=== PATIENT | male | born 1980 | race Two or more races ===

== ENCOUNTER 2023-06-18 21:34 | Emergency (ER) | payer MEDICAID, OTHER ==
[~2023-06-18] VITALS: Ht 172.7 cm; Wt 96.6 kg
[2023-06-18 21:43] VITALS: TEMP 98
[2023-06-18 22:18] VITALS: BP 130/77; O2SAT 99
[2023-06-18 22:24] LABS: BASOPHILS % (AUTO) 0.6 % (0.0-2.0); EOSINOPHILS # (AUTO) 0.2 K/uL (0.0-0.7); EOSINOPHILS % (AUTO) 2.7 % (0.0-6.0); HEMATOCRIT 41 % (39-51); LYMPHOCYTES # (AUTO) 2.1 K/uL (0.8-4.8); LYMPHOCYTES % (AUTO) 29.6 % (20.0-44.0); MEAN CORPUSCULAR HEMOGLOBIN 29 PG (26.0-33.0); MEAN CORPUSCULAR HGB CONC 35 g/dl (31.0-36.0); MEAN CORPUSCULAR VOLUME 83 fL (80-96); MONOCYTES # (AUTO) 0.6 K/uL (0.1-1.30); MONOCYTES % (AUTO) 7.9 % (2.0-12.0); NEUTROPHILS # (AUTO) 4.2 K/uL (1.8-8.9); NEUTROPHILS % (AUTO) 59.2 % (43.0-81.0); PLATELET COUNT (AUTO) 185 K/uL (150-450); RED CELL DISTRIBUTION WIDTH 13.1 % (11.5-15.0)
[2023-06-18 22:43] LABS: CALCIUM, SERUM 8.9 mg/dL (8.5-10.1); CARBON DIOXIDE 25 mmol/L (21-32); CHLORIDE 99 mmol/L (98-107); CREATININE 0.8 mg/dL (0.6-1.3); GLUCOSE 103 mg/dL (74-106); POTASSIUM 3.6 mmol/L (3.5-5.1); SODIUM SERUM 135 mmol/L (136-145); UREA NITROGEN, BLOOD 15 mg/dL (7-18)
[2023-06-18 22:45] LABS: ACETAMINOPHEN <10 ug/ml (10-30); ALANINE AMINOTRANSFERASE 38 U/L (12-78); ALBUMIN 3.9 g/dL (3.4-5.0); ALCOHOL, BLOOD < 3 mg/dL (0-10); ALKALINE PHOSPHATASE 83 U/L (46-116); ASPARTATE AMINOTRANSFERASE 16 U/L (15-37); BILIRUBIN,DIRECT 0.1 mg/dL (0.0-0.2); BILIRUBIN,TOTAL 0.3 mg/dL (0.2-1.0); SALICYLATE 4.9 mg/dL (2.8-20.0); TOTAL PROTEIN, SERUM 6.9 g/dL (6.4-8.2)
[2023-06-19 03:06] LABS: APPEARANCE,URINE CLEAR (CLEAR); BILIRUBIN,URINE NEGATIVE (NEGATIVE); BLOOD, URINE NEGATIVE Ery/uL (NEGATIVE); COLOR,URINE YELLOW (YELLOW); KETONES,URINE NEGATIVE (NEGATIVE); LEUKOCYTE ESTERASE ,URINE NEGATIVE (NEGATIVE); NITRITE, URINE NEGATIVE (NEGATIVE); PROTEIN,URINE NEGATIVE (NEGATIVE); UGLUCOSE NEGATIVE (NEGATIVE); UROBILINOGEN,URINE 0.2 EU/dL (0.2)
[2023-06-19 03:23] LABS: AMPHETAMINE, URINE NEGATIVE (NEGATIVE); BARBITURATE, URINE NEGATIVE (NEGATIVE); BENZODIAZEPINE, URINE NEGATIVE (NEGATIVE); CANNABINOID, URINE NEGATIVE (NEGATIVE); COCCAINE, URINE NEGATIVE (NEGATIVE); OPIATE, URINE NEGATIVE (NEGATIVE); PHENCYCLIDINE SCREEN,URINE NEGATIVE (NEGATIVE)
== END 2023-06-19 02:59 | disposition home or self-care (01) ==
LOC: ER 21:36
DX: T43.592A Poisoning by other antipsychotics and neuroleptics, intentional self-harm, initial encounter (principal); Y92.89 Other specified places as the place of occurrence of the external cause
CPT/HCPCS: 36415; 80048-TC; 80076-TC; 85025-TC; G0480

== ENCOUNTER 2024-04-27 14:06 | Inpatient (IN) | payer BC, OTHER ==
[~2024-04-27] VITALS: Ht 175.3 cm; Wt 79.4 kg
[2024-04-27] MEDS: IV NS 0.9% 1,000 ML BAG IV ONE (17:31)
[2024-04-27 17:47] LABS: BASOPHILS % (AUTO) 0.3 % (0.0-2.0); EOSINOPHILS % (AUTO) 0.2 % (0.0-6.0); HEMATOCRIT 41 % (39-51); HEMOGLOBIN 14.5 g/dL (13.5-17.5); LYMPHOCYTES # (AUTO) 1.6 K/uL (0.8-4.8); LYMPHOCYTES % (AUTO) 17.2 % (20.0-44.0); MEAN CORPUSCULAR HEMOGLOBIN 30 PG (26.0-33.0); MEAN CORPUSCULAR HGB CONC 36 g/dl (31.0-36.0); MEAN CORPUSCULAR VOLUME 83 fL (80-96); MONOCYTES # (AUTO) 0.6 K/uL (0.1-1.30); MONOCYTES % (AUTO) 6.3 % (2.0-12.0); NEUTROPHILS # (AUTO) 7.3 K/uL (1.8-8.9); PLATELET COUNT (AUTO) 197 K/uL (150-450); RED BLOOD CELL COUNT(AUTO) 4.89 MIL/uL (4.5-6.0); RED CELL DISTRIBUTION WIDTH 12.6 % (11.5-15.0); WHITE BLOOD COUNT (AUTO) 9.6 K/uL (4.3-11.0)
[2024-04-27 18:04] LABS: SERUM AMMONIA 16 umol/L (11-32)
[2024-04-27 18:05] LABS: CALCIUM, SERUM 10.2 mg/dL (8.5-10.1); CARBON DIOXIDE 27 mmol/L (21-32); CHLORIDE 99 mmol/L (98-107); CREATININE 0.6 mg/dL (0.6-1.3); GLUCOSE 113 mg/dL (74-106); POTASSIUM 4.6 mmol/L (3.5-5.1); SODIUM SERUM 136 mmol/L (136-145); UREA NITROGEN, BLOOD 6 mg/dL (7-18)
[2024-04-27 18:07] LABS: APPEARANCE,URINE CLEAR (CLEAR); BILIRUBIN,URINE NEGATIVE (NEGATIVE); BLOOD, URINE NEGATIVE Ery/uL (NEGATIVE); COLOR,URINE YELLOW (YELLOW); KETONES,URINE NEGATIVE (NEGATIVE); LEUKOCYTE ESTERASE ,URINE NEGATIVE (NEGATIVE); NITRITE, URINE NEGATIVE (NEGATIVE); PROTEIN,URINE NEGATIVE (NEGATIVE); UGLUCOSE NEGATIVE (NEGATIVE); UROBILINOGEN,URINE 0.2 EU/dL (0.2)
[2024-04-27 18:11] LABS: ALANINE AMINOTRANSFERASE 28 U/L (12-78); ALBUMIN 4.1 g/dL (3.4-5.0); ALKALINE PHOSPHATASE 85 U/L (46-116); ASPARTATE AMINOTRANSFERASE 27 U/L (15-37); BILIRUBIN,DIRECT 0.1 mg/dL (0.0-0.2); BILIRUBIN,TOTAL 0.6 mg/dL (0.2-1.0); SALICYLATE 2.2 mg/dL (2.8-20.0); TOTAL PROTEIN, SERUM 7.8 g/dL (6.4-8.2)
[2024-04-27 18:12] LABS: ACETAMINOPHEN 0 ug/ml (10-30); ALCOHOL, BLOOD < 3 mg/dL (0-10)
[2024-04-27 20:40] LABS: AMPHETAMINE, URINE NEGATIVE (NEGATIVE); BARBITURATE, URINE NEGATIVE (NEGATIVE); BENZODIAZEPINE, URINE NEGATIVE (NEGATIVE); CANNABINOID, URINE NEGATIVE (NEGATIVE); COCCAINE, URINE NEGATIVE (NEGATIVE); OPIATE, URINE NEGATIVE (NEGATIVE); PHENCYCLIDINE SCREEN,URINE NEGATIVE (NEGATIVE)
[2024-04-27] MEDS ORDERED: diphenhydrAMINE HCL 50 MG/ML VIAL ONE (22:18)
[2024-04-27] MEDS ORDERED: LORAZEPAM INJ 2 MG/ML VIAL ONE (22:19)
[2024-04-27] MEDS ORDERED: OLANZAPINE 10 MG VIAL IM ONE (22:19)
[2024-04-27] MEDS: LORAZEPAM INJ 2 MG/ML VIAL IV ONE (22:30)
[2024-04-27] MEDS: diphenhydrAMINE HCL 50 MG/ML VIAL IV ONE (22:30)
[2024-04-27] MEDS: OLANZAPINE 10 MG VIAL IM ONE (22:32)
[2024-04-28] VITALS (23 sets, daily range): BP systolic 109–137; BP diastolic 78–97; TEMP 98.6–100.4; O2SAT 95–97
[2024-04-28] MEDS ORDERED: LORAZEPAM INJ 2 MG/ML VIAL ONE (00:19)
[2024-04-28] MEDS: LORAZEPAM INJ 2 MG/ML VIAL IV ONE (00:37)
[2024-04-28] MEDS ORDERED: ONDANSETRON HCL/PF 4 MG/2 ML VIAL ONE (01:16)
[2024-04-28] MEDS: ONDANSETRON HCL/PF 4 MG/2 ML VIAL IV ONE (01:42)
[2024-04-28] MEDS: IV NS 0.9% 1,000 ML BAG IV ONE (02:54)
[2024-04-28] MEDS ORDERED: HALOPERIDOL LACTATE INJ 5 MG/ML VIAL ONE (03:01)
[2024-04-28] MEDS: HALOPERIDOL LACTATE INJ 5 MG/ML VIAL IM ONE (03:09)
[2024-04-28] MEDS ORDERED: diphenhydrAMINE HCL 50 MG/ML VIAL ONE (05:05)
[2024-04-28] MEDS: diphenhydrAMINE HCL 50 MG/ML VIAL IV ONE (05:08)
[2024-04-28] MEDS ORDERED: MORPHINE SULFATE INJ 2 MG/ML DISP.SYRIN IV PRN (09:00)
[2024-04-28] MEDS ORDERED: ACETAMINOPHEN 325 MG TABLET PO PRN (09:00)
[2024-04-28] MEDS ORDERED: ONDANSETRON HCL/PF 4 MG/2 ML VIAL IVP PRN (09:00)
[2024-04-28] MEDS ORDERED: hydrALAZINE HCL IV 20 MG VIAL IV PRN (09:00)
[2024-04-28] MEDS ORDERED: ENOXAPARIN SODIUM 40 MG/0.4 ML DISP.SYRIN SQ ONE ×2 (09:15→09:37)
[2024-04-28] MEDS: IV NS 0.9% 1,000 ML IV SCH (09:45)
[2024-04-28] MEDS: ENOXAPARIN SODIUM 40 MG/0.4 ML DISP.SYRIN SQ SCH (09:47)
[2024-04-28] MEDS ORDERED: QUET100T PO (10:46)
[2024-04-28] MEDS: OLANZAPINE 2.5 MG TABLET PO SCH (15:17)
[2024-04-28] MEDS: OLANZAPINE 10 MG TABLET PO SCH (21:22)
[2024-04-29] VITALS (21 sets, daily range): BP systolic 94–149; BP diastolic 59–92; TEMP 97.7–98.6; O2SAT 92–96
[2024-04-29 04:50] LABS: BASOPHILS % (AUTO) 0.4 % (0.0-2.0); EOSINOPHILS # (AUTO) 0.1 K/uL (0.0-0.7); EOSINOPHILS % (AUTO) 1.1 % (0.0-6.0); HEMATOCRIT 36 % (39-51); HEMOGLOBIN 12.6 g/dL (13.5-17.5); LYMPHOCYTES # (AUTO) 2.3 K/uL (0.8-4.8); MEAN CORPUSCULAR HEMOGLOBIN 30 PG (26.0-33.0); MEAN CORPUSCULAR HGB CONC 35 g/dl (31.0-36.0); MEAN CORPUSCULAR VOLUME 87 fL (80-96); MONOCYTES % (AUTO) 10.6 % (2.0-12.0); NEUTROPHILS # (AUTO) 5.7 K/uL (1.8-8.9); NEUTROPHILS % (AUTO) 62.9 % (43.0-81.0); PLATELET COUNT (AUTO) 193 K/uL (150-450); RED BLOOD CELL COUNT(AUTO) 4.18 MIL/uL (4.5-6.0); RED CELL DISTRIBUTION WIDTH 12.6 % (11.5-15.0); WHITE BLOOD COUNT (AUTO) 9.1 K/uL (4.3-11.0)
[2024-04-29 05:04] LABS: BILIRUBIN,TOTAL 0.3 mg/dL (0.2-1.0); CALCIUM, SERUM 9.3 mg/dL (8.5-10.1); CREATININE 0.9 mg/dL (0.6-1.3); MAGNESIUM 2.2 mg/dL (1.8-2.4); PHOSPHORUS 3.5 mg/dL (2.5-4.9); POTASSIUM 3.9 mmol/L (3.5-5.1); TOTAL PROTEIN, SERUM 6.6 g/dL (6.4-8.2)
[2024-04-29] MEDS: NEOMY SULF/BACITRAC ZN/POLY 15 GM TUBE TP SCH (09:01)
[2024-04-29] MEDS: CLOTRIMAZOLE 1% 15 GM TUBE TP SCH (09:01)
[2024-04-29] MEDS ORDERED: ZOLPIDEM TARTRATE 10 MG TABLET PO PRN (10:30)
[2024-04-29] MEDS: DIVALPROEX SODIUM 500 MG TABLET.DR PO SCH (10:47)
[2024-04-29] MEDS: OLANZAPINE 2.5 MG TABLET PO SCH (17:02)
[2024-04-29] MEDS: IV NS 0.9% 1,000 ML IV PRN (18:16)
[2024-04-29] MEDS: OLANZAPINE 10 MG TABLET PO SCH (22:07)
[2024-04-30] VITALS: BP 116/67; TEMP 97.4; O2SAT 96
[2024-04-30 01:00] VITALS: BP 116/67; O2SAT 96
[2024-04-30 04:00] VITALS: BP 123/58; TEMP 97.3; O2SAT 96
[2024-04-30 05:00] VITALS: BP 123/58; O2SAT 96
[2024-04-30 07:39] LABS: BASOPHILS # (AUTO) 0.1 K/uL (0.0-0.2); BASOPHILS % (AUTO) 0.7 % (0.0-2.0); EOSINOPHILS # (AUTO) 0.2 K/uL (0.0-0.7); EOSINOPHILS % (AUTO) 2.3 % (0.0-6.0); HEMATOCRIT 36 % (39-51); HEMOGLOBIN 12.6 g/dL (13.5-17.5); LYMPHOCYTES # (AUTO) 2.6 K/uL (0.8-4.8); LYMPHOCYTES % (AUTO) 31.8 % (20.0-44.0); MEAN CORPUSCULAR HEMOGLOBIN 30 PG (26.0-33.0); MEAN CORPUSCULAR HGB CONC 35 g/dl (31.0-36.0); MEAN CORPUSCULAR VOLUME 84 fL (80-96); MONOCYTES # (AUTO) 0.7 K/uL (0.1-1.30); MONOCYTES % (AUTO) 8.1 % (2.0-12.0); NEUTROPHILS # (AUTO) 4.7 K/uL (1.8-8.9); NEUTROPHILS % (AUTO) 57.1 % (43.0-81.0); PLATELET COUNT (AUTO) 214 K/uL (150-450); RED BLOOD CELL COUNT(AUTO) 4.27 MIL/uL (4.5-6.0); RED CELL DISTRIBUTION WIDTH 12.4 % (11.5-15.0); WHITE BLOOD COUNT (AUTO) 8.2 K/uL (4.3-11.0)
[2024-04-30 10:43] LABS: CALCIUM, SERUM 9.2 mg/dL (8.5-10.1); POTASSIUM 4.3 mmol/L (3.5-5.1)
[2024-04-30] MEDS ORDERED: CLOT15CR35 TP (11:29)
[2024-04-30] MEDS ORDERED: Olanzapine PO (11:29)
[2024-04-30] MEDS ORDERED: OLAN5TAB3 PO (11:29)
[2024-04-30] MEDS ORDERED: DIVA500T2 PO (11:29)
== END 2024-04-30 12:55 | disposition home or self-care (01) | DRG 92 ==
LOC: ER 14:11 → ICU 04-28 10:15 → TELE1 04-29 16:02 → MEDSG1 04-30 08:08
PROVIDERS: ADMIT Internal Medicine; ATTEND Nurse Practitioner Acute Care
DX: G92.8 Other toxic encephalopathy (principal); E44.1 Mild protein-calorie malnutrition; F31.9 Bipolar disorder, unspecified; F20.9 Schizophrenia, unspecified; Z91.199 Patient's noncompliance with other medical treatment and regimen due to unspecified reason; E03.8 Other specified hypothyroidism; E88.09 Other disorders of plasma-protein metabolism, not elsewhere classified; F29 Unspecified psychosis not due to a substance or known physiological condition; T43.595A Adverse effect of other antipsychotics and neuroleptics, initial encounter; Z68.25 Body mass index [BMI] 25.0-25.9, adult; Z20.822 Contact with and (suspected) exposure to COVID-19; S61.211A Laceration without foreign body of left index finger without damage to nail, initial encounter; X58.XXXA Exposure to other specified factors, initial encounter; Y93.89 Activity, other specified; Y92.89 Other specified places as the place of occurrence of the external cause
CPT/HCPCS: 36415; 70450-TC; 71045-TC; 80048-TC; 80053-TC; 80076-TC; 80164-TC; 82140-TC; 82962-TC; 83735-TC; 84100-TC; 84439-TC; 84443-TC; 84481; 84484-TC; 85025-TC; 87081-TC; 87086-TC; 98960; A4223; A6403; G0378; G0480; J1200; J1630; J1650; J2060; J2405; J3490; J7030

== ENCOUNTER 2024-05-15 19:56 | Inpatient (IN) | payer BC, OTHER ==
[~2024-05-15] VITALS: Ht 175.3 cm; Wt 94.1 kg
[~2024-05-15 19:56] MED LIST: CLOT15CR35 TP; DIVA500T2 PO; OLAN5TAB3 PO; Olanzapine PO
[2024-05-15] MEDS ORDERED: MAG HYDROX/AL HYDROX/SIMETH 30 ML UDC ONE (20:26)
[2024-05-15] MEDS ORDERED: FAMOTIDINE/PF INJ 20 MG/2 ML VIAL IV ONE (20:27)
[2024-05-15] MEDS: MAG HYDROX/AL HYDROX/SIMETH 30 ML UDC PO ONE (20:30)
[2024-05-15] MEDS: FAMOTIDINE (20 MG) 20 MG TABLET PO ONE (20:30)
[2024-05-15 20:37] LABS: BASOPHILS # (AUTO) 0.1 K/uL (0.0-0.2); BASOPHILS % (AUTO) 0.6 % (0.0-2.0); EOSINOPHILS # (AUTO) 0.1 K/uL (0.0-0.7); EOSINOPHILS % (AUTO) 1.4 % (0.0-6.0); HEMATOCRIT 37 % (39-51); LYMPHOCYTES # (AUTO) 2.4 K/uL (0.8-4.8); LYMPHOCYTES % (AUTO) 25.1 % (20.0-44.0); MEAN CORPUSCULAR HEMOGLOBIN 29 PG (26.0-33.0); MEAN CORPUSCULAR HGB CONC 36 g/dl (31.0-36.0); MEAN CORPUSCULAR VOLUME 81 fL (80-96); MONOCYTES # (AUTO) 0.7 K/uL (0.1-1.30); MONOCYTES % (AUTO) 7.4 % (2.0-12.0); NEUTROPHILS # (AUTO) 6.3 K/uL (1.8-8.9); NEUTROPHILS % (AUTO) 65.5 % (43.0-81.0); PLATELET COUNT (AUTO) 241 K/uL (150-450); RED BLOOD CELL COUNT(AUTO) 4.54 MIL/uL (4.5-6.0); RED CELL DISTRIBUTION WIDTH 12.5 % (11.5-15.0); WHITE BLOOD COUNT (AUTO) 9.6 K/uL (4.3-11.0)
[2024-05-15 20:45] LABS: CALCIUM, SERUM 8.9 mg/dL (8.5-10.1); CARBON DIOXIDE 24 mmol/L (21-32); CHLORIDE 90 mmol/L (98-107); CREATININE 0.8 mg/dL (0.6-1.3); GLUCOSE 103 mg/dL (74-106); POTASSIUM 3.7 mmol/L (3.5-5.1); SODIUM SERUM 122 mmol/L (136-145); UREA NITROGEN, BLOOD 8 mg/dL (7-18)
[2024-05-15] MEDS ORDERED: FAMOTIDINE (20 MG) 20 MG TABLET ONE (20:50)
[2024-05-15] MEDS ORDERED: ONDANSETRON HCL/PF 4 MG/2 ML VIAL IVP PRN (22:30)
[2024-05-15] MEDS ORDERED: MAG HYDROX/AL HYDROX/SIMETH 30 ML UDC PO PRN (22:30)
[2024-05-15] MEDS ORDERED: MAGNESIUM HYDROXIDE 30 ML UDC PO PRN (22:30)
[2024-05-15] MEDS ORDERED: Z GUARD REMEDY 4 OZ OINT TP PRN (22:30)
[2024-05-15 23:00] VITALS: BP 126/77; TEMP 97.9; O2SAT 98
[2024-05-15] MEDS: ZOLPIDEM TARTRATE 5 MG TABLET PO PRN (23:20)
[2024-05-15] MEDS: ENOXAPARIN SODIUM 40 MG/0.4 ML DISP.SYRIN SQ SCH (23:21)
[2024-05-15] MEDS: IV NS 0.9% 1,000 ML IV PRN (23:27)
[2024-05-16] MEDS: ACETAMINOPHEN 325 MG TABLET PO PRN (00:49)
[2024-05-16 05:01] VITALS: BP 138/84; TEMP 97.8; O2SAT 98
[2024-05-16 06:38] LABS: BASOPHILS % (AUTO) 0.4 % (0.0-2.0); EOSINOPHILS # (AUTO) 0.1 K/uL (0.0-0.7); EOSINOPHILS % (AUTO) 2.2 % (0.0-6.0); HEMATOCRIT 36 % (39-51); HEMOGLOBIN 13.1 g/dL (13.5-17.5); LYMPHOCYTES # (AUTO) 1.8 K/uL (0.8-4.8); LYMPHOCYTES % (AUTO) 33.9 % (20.0-44.0); MEAN CORPUSCULAR HEMOGLOBIN 30 PG (26.0-33.0); MEAN CORPUSCULAR HGB CONC 36 g/dl (31.0-36.0); MEAN CORPUSCULAR VOLUME 82 fL (80-96); MONOCYTES # (AUTO) 0.5 K/uL (0.1-1.30); NEUTROPHILS # (AUTO) 2.9 K/uL (1.8-8.9); NEUTROPHILS % (AUTO) 53.5 % (43.0-81.0); PLATELET COUNT (AUTO) 215 K/uL (150-450); RED BLOOD CELL COUNT(AUTO) 4.42 MIL/uL (4.5-6.0); RED CELL DISTRIBUTION WIDTH 12.5 % (11.5-15.0); WHITE BLOOD COUNT (AUTO) 5.4 K/uL (4.3-11.0)
[2024-05-16 07:00] VITALS: BP 106/45; TEMP 98.1; O2SAT 98
[2024-05-16 07:43] LABS: ALANINE AMINOTRANSFERASE 15 U/L (12-78); ALBUMIN 3.4 g/dL (3.4-5.0); ALKALINE PHOSPHATASE 70 U/L (46-116); ASPARTATE AMINOTRANSFERASE < 5 U/L (15-37); BILIRUBIN,DIRECT 0.1 mg/dL (0.0-0.2); BILIRUBIN,TOTAL 0.8 mg/dL (0.2-1.0); CALCIUM, SERUM 8.5 mg/dL (8.5-10.1); CARBON DIOXIDE 26 mmol/L (21-32); CHLORIDE 98 mmol/L (98-107); CREATININE 0.7 mg/dL (0.6-1.3); GLUCOSE 97 mg/dL (74-106); PHOSPHORUS 3.2 mg/dL (2.5-4.9); POTASSIUM 3.9 mmol/L (3.5-5.1); SODIUM SERUM 134 mmol/L (136-145); TOTAL PROTEIN, SERUM 6.6 g/dL (6.4-8.2); UREA NITROGEN, BLOOD 5 mg/dL (7-18)
[2024-05-16 07:43] LABS: CREATININE, URINE 16.6 MG/DL (30.0-125.0)
[2024-05-16 07:56] LABS: URIC ACID 5.2 mg/dL (2.6-7.2)
[2024-05-16] MEDS: PANTOPRAZOLE 40 MG TABLET.DR PO SCH (08:06)
[2024-05-16] MEDS: IV D5W 1,000 ML IV ONE (09:54)
[2024-05-16] MEDS ORDERED: ZOLPIDEM TARTRATE 5 MG TABLET PO PRN (10:00)
[2024-05-16] MEDS ORDERED: LORAZEPAM 1 MG TABLET PO PRN (10:00)
[2024-05-16 11:37] LABS: CALCIUM, SERUM 8.7 mg/dL (8.5-10.1); CREATININE 0.7 mg/dL (0.6-1.3); POTASSIUM 4.3 mmol/L (3.5-5.1)
[2024-05-16 12:00] VITALS: BP 126/64; TEMP 98.7; O2SAT 98
[2024-05-16] MEDS: IV D5W 1,000 ML IV PRN (12:04)
[2024-05-16 15:32] LABS: CALCIUM, SERUM 9.1 mg/dL (8.5-10.1); CREATININE 0.7 mg/dL (0.6-1.3); POTASSIUM 4.4 mmol/L (3.5-5.1)
[2024-05-16 16:00] VITALS: BP 107/71; TEMP 98.2; O2SAT 98
[2024-05-16] MEDS: OLANZAPINE 5 MG TABLET PO SCH (17:16)
[2024-05-16 20:00] VITALS: BP 122/68; TEMP 98.2; O2SAT 97
[2024-05-16] MEDS: DIVALPROEX SODIUM 250 MG TABLET.DR PO SCH (20:14)
[2024-05-17 04:00] VITALS: BP 110/75; TEMP 98.4; O2SAT 98
[2024-05-17 07:00] VITALS: BP 114/58; TEMP 98.1; O2SAT 97
[2024-05-17] MEDS ORDERED: DIVA250T PO (09:26)
[2024-05-17] MEDS ORDERED: OLAN5TAB3 PO (09:26)
[2024-05-17] MEDS ORDERED: LORA-259 PO (09:26)
[2024-05-17 14:50] LABS: APPEARANCE,URINE CLEAR (CLEAR); BILIRUBIN,URINE NEGATIVE (NEGATIVE); BLOOD, URINE NEGATIVE Ery/uL (NEGATIVE); COLOR,URINE YELLOW (YELLOW); KETONES,URINE NEGATIVE (NEGATIVE); LEUKOCYTE ESTERASE ,URINE NEGATIVE (NEGATIVE); NITRITE, URINE NEGATIVE (NEGATIVE); PROTEIN,URINE NEGATIVE (NEGATIVE); UGLUCOSE NEGATIVE (NEGATIVE); UROBILINOGEN,URINE 0.2 EU/dL (0.2)
[2024-05-17 14:54] LABS: CREATININE, URINE 26.6 MG/DL (30.0-125.0); URINE TOTAL PROTEIN 3.3 mg/dL (0-11.9)
[2024-05-17 16:12] LABS: EOSINOPHIL,URINE None Seen
== END 2024-05-17 10:55 | disposition home or self-care (01) | DRG 641 ==
LOC: ER 20:00 → TELE 22:20 → MED 05-17 09:18
PROVIDERS: ADMIT Nurse Practitioner Family; ATTEND Nurse Practitioner Acute Care
DX: E87.1 Hypo-osmolality and hyponatremia (principal); F31.64 Bipolar disorder, current episode mixed, severe, with psychotic features; E86.9 Volume depletion, unspecified; G47.00 Insomnia, unspecified; D64.9 Anemia, unspecified; R07.89 Other chest pain; Z91.199 Patient's noncompliance with other medical treatment and regimen due to unspecified reason
CPT/HCPCS: 36415; 71045-TC; 80048-TC; 80076-TC; 82570-TC; 83735-TC; 83935-TC; 84100-TC; 84300-TC; 84443-TC; 84484-TC; 84550-TC; 85025-TC; A4223; G0378; J1650; J3490; J7030; J7070